=== PATIENT | female | born 1995 | race Caucasian/White ===

== ENCOUNTER 2018-06-15 01:28 | Emergency (ER) | payer SELFPAY ==
--- NOTE | 2018-06-15 01:36 | ER Report ---
History and Physical Time Seen By MD: 01:37 HPI/ROS CHIEF COMPLAINT: abdominal pain HISTORY OF PRESENT ILLNESS: This is a 22 year old female. She is having pain in the right lower abdomen and in the right back/flank area. Started last night. Pa in stays on the right side. Nausea and dry heaves. Urine perhaps a little darker. Normal bowels. No urgency or dysuria. No fevers or chills. Nothing has really made the pain worse or better. No cough or shortness of breath. No chest pain. Allergies: Coded Allergies: No Known Drug Allergies (Unverified , 06/15/18) Home Meds Active Scripts Ketorolac Tromethamine (KETOROLAC TROMETHAMINE) 10 Mg Tab, 10 MG PO Q6H PRN for PAIN, #12 TAB 0 Refills Prov:PEE TURPIN MD 06/15/18 Ondansetron (ONDANSETRON ODT) 4 Mg Tab.rapdis, 4 MG PO Q6H PRN for NAUSEA/VOMITING, #20 TAB 0 Refills Prov:PEE TURPIN MD 06/15/18 Hydrocodone Bit/Acetaminophen (HYDROCODON-ACETAMINOPHEN 5-325) 1 Each Tablet, 1 EACH PO Q4H PRN for PAIN, #12 TAB 0 Refills Prov:PEE TURPIN MD 06/15/18 Tamsulosin Hcl (FLOMAX) 0.4 Mg Cap.er.24h, 0.4 MG PO QDAY, #14 CAP 0 Refills Prov:PEE TURPIN MD 06/15/18 Reported Medications [vickie] No Conflict Check, PO DAILY 06/15/18 Reviewed Nurses Notes: Yes Constitutional Vital Sign - Last 24 Hours 06/15/18 06/15/18 06/15/18 06/15/18 01:28 01:33 01:37 01:58 Temp 97.8 Pulse ??? 57 66 Resp 13 B/P (MAP) 103/90 103/90 (94) Pulse Ox 96 95 O2 Delivery Room Air 06/15/18 06/15/18 06/15/18 06/15/18 02:00 02:42 02:47 03:00 Pulse 67 B/P (MAP) 97/82 (87) 107/78 (88) 96/71 (79) Pulse Ox 98 06/15/18 03:17 Pulse 68 Pulse Ox 91 Intake and Output 06/14/18 06/14/18 06/15/18 14:58 22:58 06:58 Intake Total 1000 ml Balance 1000 ml Physical Exam General Appearance: The patient is alert. She is having acute distress due to pain. Eyes: Pupils are equal, round. No pallor, injection or icterus. ENT: Mucous membranes are moist. Normal oral mucosa. Posterior oropharynx is normal. Neck: Supple and non tender. Respiratory: Lungs are clear to auscultation. Cardiovascular: Regular rate and rhythm. No murmurs, gallops or rubs. Normal capillary refill. Gastrointestinal: Abdomen is soft, tenderness is not reproducible with palpation. Nondistended. Normal active bowel sounds. No costovertebral angle tenderness with percussion. Neurological: Alert and oriented x3. Skin: Warm and dry. Musculoskeletal: No tenderness in palpation of the cervical, thoracic and lumbar spine. DIFFERENTIAL DIAGNOSIS: After history and physical exam, differential diagnosis was considered for abdominal pain including but not limited to appendicitis, cholecystitis, gastritis/gastroenteritis, kidney stones and urinary tract infection. Medical Decision Making Data Points Result Diagram: 06/15/18 0144 06/15/18 0144 Laboratory Hematology Test 06/15/18 01:35 06/15/18 01:44 Urine Color Yellow Urine Clarity Cloudy Urine pH 6.0 pH (4.8-9.5) Urine Specific [place] 1.021 Urine Protein 30 mg/dL (NEGATIVE) Urine Glucose (UA) Negative mg/dL (NEGATIVE) Urine Ketones Negative mg/dL (NEGATIVE) Urine Blood Large (NEGATIVE) Urine Nitrite Negative (NEGATIVE) Urine Bilirubin Negative (NEGATIVE) Urine Urobilinogen 2.0 mg/dL (0.2-1.9) Urine Leukocyte Esterase Small (NEGATIVE) Urine RBC 1838 /HPF (0-2/HPF) Urine WBC 80 /HPF (0-5/HPF) Urine Squamous Epithelial Cells Many /LPF (</=FEW) Urine Bacteria Few /HPF (NONE-FEW) Urine Mucus Few /HPF (NONE-FEW) Red Blood Count 5.02 M/uL (4.17-5.56) Mean Corpuscular Volume 90.2 fL (80.0-96.0) Mean Corpuscular Hemoglobin 31.0 pg (26.0-33.0) Mean Corpuscular Hemoglobin Concent 34.4 g/dL (32.0-36.0) Red Cell Distribution Width 11.7 % (11.5-14.5) Mean Platelet Volume 8.4 fL (7.2-11.1) Neutrophils (%) (Auto) 48.4 % (39.4-72.5) Lymphocytes (%) (Auto) 41.0 % (17.6-49.6) Monocytes (%) (Auto) 8.2 % (4.1-12.4) Eosinophils (%) (Auto) 1.6 % (0.4-6.7) Basophils (%) (Auto) 0.8 % (0.3-1.4) Nucleated RBC Relative Count (auto) 0.0 /100WBC Neutrophils # (Auto) 5.2 K/uL (2.0-7.4) Lymphocytes # (Auto) 4.4 K/uL (1.3-3.6) Monocytes # (Auto) 0.9 K/uL (0.3-1.0) Eosinophils # (Auto) 0.2 K/uL (0.0-0.5) Basophils # (Auto) 0.1 K/uL (0.0-0.1) Nucleated RBC Absolute Count (auto) 0.00 K/uL Sodium Level 138 mmol/L (137-145) Potassium Level 3.7 mmol/L (3.5-5.0) Chloride Level 105 mmol/L (98-107) Carbon Dioxide Level 21 mmol/L (22-31) Blood Urea Nitrogen 10 mg/dl (7-18) Creatinine 0.70 mg/dl (0.52-1.04) Glomerular Filtration Rate Calc > 60.0 Random Glucose 93 mg/dl (75-110) Calcium Level 9.5 mg/dl (8.4-10.2) Total Bilirubin 0.4 mg/dl (0.2-1.3) Aspartate Amino Transf (AST/SGOT) 23 U/L (0-35) Alanine Aminotransferase (ALT/SGPT) 18 U/L (0-56) Alkaline Phosphatase 62 U/L (0-126) Total Protein 8.3 g/dl (6.3-8.2) Albumin 4.5 g/dl (3.5-5.0) Amylase Level 119 U/L (0-110) Lipase 205 U/L (23-300) Human Chorionic Gonadotropin, Qual Negative (NEGATIVE) Chemistry Test 06/15/18 01:35 06/15/18 01:44 Urine Color Yellow Urine Clarity Cloudy Urine pH 6.0 pH (4.8-9.5) Urine Specific [place] 1.021 Urine Protein 30 mg/dL (NEGATIVE) Urine Glucose (UA) Negative mg/dL (NEGATIVE) Urine Ketones Negative mg/dL (NEGATIVE) Urine Blood Large (NEGATIVE) Urine Nitrite Negative (NEGATIVE) Urine Bilirubin Negative (NEGATIVE) Urine Urobilinogen 2.0 mg/dL (0.2-1.9) Urine Leukocyte Esterase Small (NEGATIVE) Urine RBC 1838 /HPF (0-2/HPF) Urine WBC 80 /HPF (0-5/HPF) Urine Squamous Epithelial Cells Many /LPF (</=FEW) Urine Bacteria Few /HPF (NONE-FEW) Urine Mucus Few /HPF (NONE-FEW) White Blood Count 10.8 k/uL (4.5-11.0) Red Blood Count 5.02 M/uL (4.17-5.56) Hemoglobin 15.6 g/dL (12.0-16.0) Hematocrit 45.3 % (34.0-47.0) Mean Corpuscular Volume 90.2 fL (80.0-96.0) Mean Corpuscular Hemoglobin 31.0 pg (26.0-33.0) Mean Corpuscular Hemoglobin Concent 34.4 g/dL (32.0-36.0) Red Cell Distribution Width 11.7 % (11.5-14.5) Platelet Count 354 K/uL (150-450) Mean Platelet Volume 8.4 fL (7.2-11.1) Neutrophils (%) (Auto) 48.4 % (39.4-72.5) Lymphocytes (%) (Auto) 41.0 % (17.6-49.6) Monocytes (%) (Auto) 8.2 % (4.1-12.4) Eosinophils (%) (Auto) 1.6 % (0.4-6.7) Basophils (%) (Auto) 0.8 % (0.3-1.4) Nucleated RBC Relative Count (auto) 0.0 /100WBC Neutrophils # (Auto) 5.2 K/uL (2.0-7.4) Lymphocytes # (Auto) 4.4 K/uL (1.3-3.6) Monocytes # (Auto) 0.9 K/uL (0.3-1.0) Eosinophils # (Auto) 0.2 K/uL (0.0-0.5) Basophils # (Auto) 0.1 K/uL (0.0-0.1) Nucleated RBC Absolute Count (auto) 0.00 K/uL Glomerular Filtration Rate Calc > 60.0 Calcium Level 9.5 mg/dl (8.4-10.2) Total Bilirubin 0.4 mg/dl (0.2-1.3) Aspartate Amino Transf (AST/SGOT) 23 U/L (0-35) Alanine Aminotransferase (ALT/SGPT) 18 U/L (0-56) Alkaline Phosphatase 62 U/L (0-126) Total Protein 8.3 g/dl (6.3-8.2) Albumin 4.5 g/dl (3.5-5.0) Amylase Level 119 U/L (0-110) Lipase 205 U/L (23-300) Human Chorionic Gonadotropin, Qual Negative (NEGATIVE) Urinalysis Test 06/15/18 01:35 Urine Color Yellow Urine Clarity Cloudy Urine pH 6.0 pH (4.8-9.5) Urine Specific [place] 1.021 Urine Protein 30 mg/dL (NEGATIVE) Urine Glucose (UA) Negative mg/dL (NEGATIVE) Urine Ketones Negative mg/dL (NEGATIVE) Urine Blood Large (NEGATIVE) Urine Nitrite Negative (NEGATIVE) Urine Bilirubin Negative (NEGATIVE) Urine Urobilinogen 2.0 mg/dL (0.2-1.9) Urine Leukocyte Esterase Small (NEGATIVE) Urine RBC 1838 /HPF (0-2/HPF) Urine WBC 80 /HPF (0-5/HPF) Urine Squamous Epithelial Cells Many /LPF (</=FEW) Urine Bacteria Few /HPF (NONE-FEW) Urine Mucus Few /HPF (NONE-FEW) EKG/Imaging Imaging Computed tomograpy abdomen and pelvis with IV contrast Indication: Right-sided pain. Flank pain. Comparison: None available. Technique: Transaxial computed tomography images were obtained through the abdomen and pelvis following the injection of nonionic iodinated intravenous contrast. Reformatted coronal and sagittal images were also obtained. One of the following dose optimization techniques was utilized in the performance of this exam: Automated exposure control; adjustment of the mA and/or kV according to the patient's size; or use of an iterative reconstruction technique. Specific details can be referenced in the facility's radiology CT exam operational policy. Contrast: 75 ml of Isovue-370 IV contrast. Findings: Lower lung pozo: Limited views lower lung field are unremarkable. Liver: No focal parenchymal abnormality of the liver. Biliary: Gallbladder appears unremarkable as well as the intra and extra hepatic biliary system. Pancreas: Normal appearance. Spleen: Normal appearance. Adrenal glands: Unremarkable. Kidneys / retroperitoneum: On the right side, there is mild-moderate hydronephrosis identified. This is due to an obstructing proximal ureteral stone seen just beyond the ureteropelvic junction. This stone measures up to 3 mm in size. The ureter distal to the stone is decompressed. No additional right-sided calculi are seen. On the left, no stones or hydronephrosis. Bowel / peritoneum / mesenteries: The appendix is identified within the central pelvis. It appears mildly enlarged measuring 9 mm in thickness. Equivocal wall thickening but no discrete surrounding inflammatory changes at this time. Close clinical follow-up is recommended. Early acute appendicitis cannot be excluded. Scattered lymph nodes are seen in the right ileocolonic mesentery. There are a few fluid-filled bowel loops within the right mid abdomen. Developing ileus in this location is a consideration. No free air. No free pelvic fluid. Lymph node assessment: Scattered nonspecific nodes are seen within the right ileocolonic mesentery. These may be reactive. Pelvic structures: Appear unremarkable. Vessels: No significant atherosclerotic calcifications seen throughout a nonaneurysmal abdominal aorta and branches. Musculoskeletal / Body wall: A mild levocurvature centered in the mid lumbar spine. IMPRESSION: 1. Moderate right-sided hydronephrosis and proximal hydroureter due to an obst ructing proximal ureteral stone which measures 3 mm in size. 2. Prominent appendix in the right central pelvis with equivocal wall thickening but without surrounding inflammatory change. Close clinical follow-up is recommended. Results were discussed with PEE TURPIN at 06/15/2018 3:15 AM. Report Dictated By: Jose Paulson at 06/15/2018 2:55 AM ED Course/Re-evaluation Clinical Indication for ER IV: Hydration, IV Access ED Course Improved with the IV fluids, Zofran, Morphine and Toradol. See CT scan report. Discussed this with the patient, including the increased size of the appendix, but no sign of inflammation, fever, or elevated white count. Discussed signs and symptoms to watch for and also regarding treatment of kidney stones. Decision to Disposition Date: Jun 15, 2018 Decision to Disposition Time: 03:12 Depart Departure Latest Vital Signs Vital Signs Date Time Temp Pulse Resp B/P (MAP) Pulse Ox O2 Delivery O2 Flow Rate FiO2 06/15/18 03:17 68 91 06/15/18 03:00 96/71 (79) 06/15/18 01:33 97.8 13 Room Air Impression: Primary Impression: Kidney stone on right side Condition: Improved Disposition: HOME OR SELF-CARE New Scripts Ketorolac Tromethamine (KETOROLAC TROMETHAMINE) 10 Mg Tab 10 MG PO Q6H PRN for PAIN, #12 TAB 0 Refills Prov: PEE TURPIN MD 06/15/18 Ondansetron (ONDANSETRON ODT) 4 Mg Tab.rapdis 4 MG PO Q6H PRN for NAUSEA/VOMITING, #20 TAB 0 Refills Prov: PEE TURPIN MD 06/15/18 Hydrocodone Bit/Acetaminophen (HYDROCODON-ACETAMINOPHEN 5-325) 1 Each Tablet 1 EACH PO Q4H PRN for PAIN, #12 TAB 0 Refills Prov: PEE TURPIN MD 06/15/18 Tamsulosin Hcl (FLOMAX) 0.4 Mg Cap.er.24h 0.4 MG PO QDAY, #14 CAP 0 Refills Prov: PEE TURPIN MD 06/15/18 Patient Instructions: Kidney Stones (ED) Additional Instructions: You have a 3mm stone in the right ureter. It is causing some back up of fluid to the kidney. This should pass with time. Rest and increase fluid intake. For pain you can use: Toradol 10mg, one every 6 hours as needed for pain. Lortab 5/325, take 1-2 every 4 hours as needed for pain. For Nausea: Zofran 4mg, one every 4-6 hours as needed for nausea. To help the stone to pass and to help decrease swelling and pain in the urinary system after the stone passes, we recommend using Flomax 0.4mg one daily for the next couple of weeks. Please return to the ER should you have fevers and chills, or pain that is worsening and uncontrolled with the pain medicine, or nausea that is uncontrolled with the nausea medicine. PEE TURPIN MD Jun 15, 2018 01:36
[2018-06-15] MEDS ORDERED: yazmin PO (01:45)
[2018-06-15] MEDS ORDERED: NS(*) 0.9% 1000 ML BAG 1,000 ML IV ONE (01:55)
[2018-06-15] MEDS ORDERED: ONDANSETRON 4 MG/2 ML VIAL IVP ONE (01:55)
[2018-06-15] MEDS ORDERED: MORPHINE 4 MG/ML SDV IVP ONE ×2 (01:55→02:50)
[2018-06-15 02:12] LABS: PLATELET COUNT, AUTOMATED 354 K/uL (150-450)
[2018-06-15] MEDS ORDERED: IOPAMIDOL 76% 75 ML INFUS BTL 75 ML ONE (02:23)
[2018-06-15] MEDS ORDERED: KETOROLAC 30 MG/ML VIAL IVP ONE (02:50)
[2018-06-15 03:00] VITALS: BP 96/71
[2018-06-15] MEDS ORDERED: KETOROLAC TROM 10 MG TAB TH PO ONE (03:10)
[2018-06-15] MEDS ORDERED: ONDANSETRON 4 MG ODT TH SL ONE (03:10)
[2018-06-15] MEDS ORDERED: TAMSULOSIN HCL 0.4 MG CAP PO ONE (03:10)
[2018-06-15] MEDS ORDERED: APAP/HYDROCODONE 325/5 TAB PO ONE (03:10)
[2018-06-15] MEDS ORDERED: ACET/HYDROC 5/325MG TH ER ONLY 2 TAB/BOTTLE PO ONE (03:10)
[2018-06-15] MEDS ORDERED: TAMS0.4C25 PO (03:14)
[2018-06-15] MEDS ORDERED: KET10 PO (03:14)
[2018-06-15] MEDS ORDERED: ONDA4TAB9 PO (03:14)
[2018-06-15] MEDS ORDERED: LOR5/325 PO (03:14)
--- NOTE | 2018-06-15 03:21 | RADIOLOGY IMAGING REPORT ---
FACILITY: [facility] PATIENT NAME: Temitope Alexander : 1995 MR: [id number] V: [id number] EXAM DATE: ORDERING PHYSICIAN: PEE TURPIN TECHNOLOGIST: [place] [facility] [place]: Temitope Alexander : 1995 Visit/Account:[id number] Date of Sevice: 06/15/2018 Computed tomograpy abdomen and pelvis with IV contrast Indication: Right-sided pain. Flank pain. Comparison: None available. Technique: Transaxial computed tomography images were obtained through the abdomen and pelvis follo wing the injection of nonionic iodinated intravenous contrast. Reformatted coronal and sagittal image s were also obtained. One of the following dose optimization techniques was utilized in the performance of this exam: Autom ated exposure control; adjustment of the mA and/or kV according to the patient's size; or use of an i terative reconstruction technique. Specific details can be referenced in the facility's radiology C T exam operational policy. Contrast: 75 ml of Isovue-370 IV contrast. Findings: Lower lung pozo: Limited views lower lung field are unremarkable. Liver: No focal parenchymal abnormality of the liver. Biliary: Gallbladder appears unremarkable as well as the intra and extra hepatic biliary system. Pancreas: Normal appearance. Spleen: Normal appearance. Adrenal glands: Unremarkable. Kidneys / retroperitoneum: On the right side, there is mild-moderate hydronephrosis identified. This is due to an obstructing proximal ureteral stone seen just beyond the ureteropelvic junction. This st one measures up to 3 mm in size. The ureter distal to the stone is decompressed. No additional right- sided calculi are seen. On the left, no stones or hydronephrosis. Bowel / peritoneum / mesenteries: The appendix is identified within the central pelvis. It appears mi ldly enlarged measuring 9 mm in thickness. Equivocal wall thickening but no discrete surrounding infl ammatory changes at this time. Close clinical follow-up is recommended. Early acute appendicitis jeremias ot be excluded. Scattered lymph nodes are seen in the right ileocolonic mesentery. There are a few fl uid-filled bowel loops within the right mid abdomen. Developing ileus in this location is a considera tion. No free air. No free pelvic fluid. Lymph node assessment: Scattered nonspecific nodes are seen within the right ileocolonic mesentery. T hese may be reactive. Pelvic structures: Appear unremarkable. Vessels: No significant atherosclerotic calcifications seen throughout a nonaneurysmal abdominal aort a and branches. Musculoskeletal / Body wall: A mild levocurvature centered in the mid lumbar spine. IMPRESSION: 1. Moderate right-sided hydronephrosis and proximal hydroureter due to an obstructing proximal ureter al stone which measures 3 mm in size. 2. Prominent appendix in the right central pelvis with equivocal wall thickening but without surround ing inflammatory change. Close clinical follow-up is recommended. Results were discussed with PEE TURPIN at 06/15/2018 3:15 AM. Report Dictated By: Jose Paulson at 06/15/2018 2:55 AM Report E-Signed By: Jose Paulson at 06/15/2018 3:16 AM WSN:[id number]
== END 2018-06-15 03:32 | disposition home or self-care (01) ==
LOC: ER 02:12
DX: N13.2 Hydronephrosis with renal and ureteral calculous obstruction (principal); N13.4 Hydroureter
CPT/HCPCS: 74177; 81001; 82150; 83690; 84703; 85025; 96361; 96374; 96375; 96376; 99284; J1885; J2270; J2405; J7030; Q9967; S0119; 82040; 82247; 82310; 82374; 82435; 82565; 82947; 84075; 84132; 84155; 84295; 84450; 84460; 84520

== ENCOUNTER 2018-06-19 04:02 | Emergency (ER) | payer OTHER ==
[~2018-06-19 04:02] MED LIST: KET10 PO; LOR5/325 PO; ONDA4TAB9 PO; TAMS0.4C25 PO; yazmin PO
--- NOTE | 2018-06-19 04:12 | ER Report ---
History and Physical Time Seen By MD: 04:07 HPI/ROS CHIEF COMPLAINT: Right flank pain HISTORY OF PRESENT ILLNESS: 22-year-old female with a known history of kidney stone diagnosed on CAT scan 3 days ago. It's a 3 mm stone in the proximal urete r. At that time. Patient was discharged home with medication. Patient was doing well the last 2 days. Tonight. She's been having increased pain. She's got 8/10 right flank pain. She took Zofran and ketorolac orally at home prior to coming in. REVIEW OF SYSTEMS: Respiratory: No cough, no dyspnea. Cardiovascular: No chest pain, no palpitations. Gastrointestinal: As above Musculoskeletal: As above Allergies: Coded Allergies: No Known Drug Allergies (Unverified , 06/19/18) Home Meds Active Scripts Hydrocodone Bit/Acetaminophen (HYDROCODON-ACETAMINOPHEN 5-325) 1 Each Tablet, 1- 2 EACH PO Q4-6H PRN for PAIN, #15 TAKE ONE TABLET BY MOUTH EVERY 4-6 HOURS NEEDED FOR PAIN Prov:ELVIS NEWTON DO 06/19/18 Ketorolac Tromethamine (KETOROLAC TROMETHAMINE) 10 Mg Tab, 10 MG PO Q6H PRN for PAIN, #12 TAB 0 Refills Prov:PEE TURPIN MD 06/15/18 Ondansetron (ONDANSETRON ODT) 4 Mg Tab.rapdis, 4 MG PO Q6H PRN for NAUSEA/VOMITING, #20 TAB 0 Refills Prov:PEE TURPIN MD 06/15/18 Hydrocodone Bit/Acetaminophen (HYDROCODON-ACETAMINOPHEN 5-325) 1 Each Tablet, 1 EACH PO Q4H PRN for PAIN, #12 TAB 0 Refills Prov:PEE TURPIN MD 06/15/18 Tamsulosin Hcl (FLOMAX) 0.4 Mg Cap.er.24h, 0.4 MG PO QDAY, #14 CAP 0 Refills Prov:PEE TURPIN MD 06/15/18 Reported Medications [vickie] No Conflict Check, PO DAILY 06/15/18 Reviewed Nurses Notes: Yes Old Medical Records Reviewed: Yes Hx Substance Use Disorder: No Constitutional Vital Sign - Last 24 Hours 06/19/18 06/19/18 06/19/18 06/19/18 04:02 04:04 04:09 04:17 Temp 98.1 Pulse ??? 72 79 Resp 16 B/P (MAP) 127/91 127/91 (103) Pulse Ox 95 94 O2 Delivery Room Air 06/19/18 06/19/18 06/19/18 06/19/18 04:27 04:30 04:32 04:47 Pulse 75 83 B/P (MAP) 122/86 (98) 115/84 (94) Pulse Ox 89 95 06/19/18 06/19/18 06/19/18 06/19/18 05:00 05:02 05:07 05:22 Pulse 68 64 67 B/P (MAP) 108/75 (86) Pulse Ox 89 91 91 06/19/18 06/19/18 05:30 05:32 Pulse 85 Resp 16 B/P (MAP) 106/77 (87) 127/66 (86) Pulse Ox 96 O2 Delivery Room Air Physical Exam General Appearance: The patient is alert, has no immediate need for airway protection and no current signs of toxicity. Vital signs stable, afebrile, moderate distress HEENT: Pupils equal and round no injection. TMs normal, oropharynx without redness or exudate Respiratory: Chest is non tender, lungs are clear to auscultation. Cardiac: regular rate and rhythm Gastrointestinal: Abdomen is soft and non tender, no masses, bowel sounds normal. Mild right CVA tenderness Musculoskeletal: Neck: Neck is supple and non tender. Extremities have full range of motion and are non tender. Skin: No rashes or lesions. DIFFERENTIAL DIAGNOSIS: After history and physical exam differential diagnosis was considered for flank pain including but not limited to musculoskeletal causes, kidney stone, pyelonephritis, shingles, and intra-abdominal causes such as diverticulitis and appendicitis. Medical Decision Making Data Points Result Diagram: 06/19/18 0416 06/19/18 0416 Laboratory Hematology Test 06/19/18 04:08 06/19/18 04:16 Urine Color Yellow Urine Clarity Clear Urine pH 5.0 pH (4.8-9.5) Urine Specific [place] 1.015 Urine Protein Negative mg/dL (NEGATIVE) Urine Glucose (UA) Negative mg/dL (NEGATIVE) Urine Ketones Negative mg/dL (NEGATIVE) Urine Blood Small (NEGATIVE) Urine Nitrite Negative (NEGATIVE) Urine Bilirubin Negative (NEGATIVE) Urine Urobilinogen Negative mg/dL (0.2-1.9) Urine Leukocyte Esterase Negative (NEGATIVE) Urine RBC 6 /HPF (0-2/HPF) Urine WBC 2 /HPF (0-5/HPF) Urine Squamous Epithelial Cells Many /LPF (</=FEW) Urine Bacteria Few /HPF (NONE-FEW) Urine Mucus Few /HPF (NONE-FEW) Red Blood Count 4.71 M/uL (4.17-5.56) Mean Corpuscular Volume 88.5 fL (80.0-96.0) Mean Corpuscular Hemoglobin 30.8 pg (26.0-33.0) Mean Corpuscular Hemoglobin Concent 34.8 g/dL (32.0-36.0) Red Cell Distribution Width 11.4 % (11.5-14.5) Mean Platelet Volume 7.8 fL (7.2-11.1) Neutrophils (%) (Auto) 60.6 % (39.4-72.5) Lymphocytes (%) (Auto) 27.6 % (17.6-49.6) Monocytes (%) (Auto) 9.6 % (4.1-12.4) Eosinophils (%) (Auto) 1.6 % (0.4-6.7) Basophils (%) (Auto) 0.6 % (0.3-1.4) Nucleated RBC Relative Count (auto) 0.0 /100WBC Neutrophils # (Auto) 6.7 K/uL (2.0-7.4) Lymphocytes # (Auto) 3.1 K/uL (1.3-3.6) Monocytes # (Auto) 1.1 K/uL (0.3-1.0) Eosinophils # (Auto) 0.2 K/uL (0.0-0.5) Basophils # (Auto) 0.1 K/uL (0.0-0.1) Nucleated RBC Absolute Count (auto) 0.00 K/uL Sodium Level 139 mmol/L (137-145) Potassium Level 3.8 mmol/L (3.5-5.0) Chloride Level 107 mmol/L (98-107) Carbon Dioxide Level 22 mmol/L (22-31) Blood Urea Nitrogen 11 mg/dl (7-18) Creatinine 1.10 mg/dl (0.52-1.04) Glomerular Filtration Rate Calc > 60.0 Random Glucose 98 mg/dl (75-110) Calcium Level 9.4 mg/dl (8.4-10.2) Total Bilirubin 0.2 mg/dl (0.2-1.3) Aspartate Amino Transf (AST/SGOT) 18 U/L (0-35) Alanine Aminotransferase (ALT/SGPT) 27 U/L (0-56) Alkaline Phosphatase 58 U/L (0-126) Total Protein 6.8 g/dl (6.3-8.2) Albumin 3.8 g/dl (3.5-5.0) Amylase Level 78 U/L (0-110) Lipase 157 U/L (23-300) Chemistry Test 06/19/18 04:08 06/19/18 04:16 Urine Color Yellow Urine Clarity Clear Urine pH 5.0 pH (4.8-9.5) Urine Specific [place] 1.015 Urine Protein Negative mg/dL (NEGATIVE) Urine Glucose (UA) Negative mg/dL (NEGATIVE) Urine Ketones Negative mg/dL (NEGATIVE) Urine Blood Small (NEGATIVE) Urine Nitrite Negative (NEGATIVE) Urine Bilirubin Negative (NEGATIVE) Urine Urobilinogen Negative mg/dL (0.2-1.9) Urine Leukocyte Esterase Negative (NEGATIVE) Urine RBC 6 /HPF (0-2/HPF) Urine WBC 2 /HPF (0-5/HPF) Urine Squamous Epithelial Cells Many /LPF (</=FEW) Urine Bacteria Few /HPF (NONE-FEW) Urine Mucus Few /HPF (NONE-FEW) White Blood Count 11.0 k/uL (4.5-11.0) Red Blood Count 4.71 M/uL (4.17-5.56) Hemoglobin 14.5 g/dL (12.0-16.0) Hematocrit 41.7 % (34.0-47.0) Mean Corpuscular Volume 88.5 fL (80.0-96.0) Mean Corpuscular Hemoglobin 30.8 pg (26.0-33.0) Mean Corpuscular Hemoglobin Concent 34.8 g/dL (32.0-36.0) Red Cell Distribution Width 11.4 % (11.5-14.5) Platelet Count 293 K/uL (150-450) Mean Platelet Volume 7.8 fL (7.2-11.1) Neutrophils (%) (Auto) 60.6 % (39.4-72.5) Lymphocytes (%) (Auto) 27.6 % (17.6-49.6) Monocytes (%) (Auto) 9.6 % (4.1-12.4) Eosinophils (%) (Auto) 1.6 % (0.4-6.7) Basophils (%) (Auto) 0.6 % (0.3-1.4) Nucleated RBC Relative Count (auto) 0.0 /100WBC Neutrophils # (Auto) 6.7 K/uL (2.0-7.4) Lymphocytes # (Auto) 3.1 K/uL (1.3-3.6) Monocytes # (Auto) 1.1 K/uL (0.3-1.0) Eosinophils # (Auto) 0.2 K/uL (0.0-0.5) Basophils # (Auto) 0.1 K/uL (0.0-0.1) Nucleated RBC Absolute Count (auto) 0.00 K/uL Glomerular Filtration Rate Calc > 60.0 Calcium Level 9.4 mg/dl (8.4-10.2) Total Bilirubin 0.2 mg/dl (0.2-1.3) Aspartate Amino Transf (AST/SGOT) 18 U/L (0-35) Alanine Aminotransferase (ALT/SGPT) 27 U/L (0-56) Alkaline Phosphatase 58 U/L (0-126) Total Protein 6.8 g/dl (6.3-8.2) Albumin 3.8 g/dl (3.5-5.0) Amylase Level 78 U/L (0-110) Lipase 157 U/L (23-300) Urinalysis Test 06/19/18 04:08 Urine Color Yellow Urine Clarity Clear Urine pH 5.0 pH (4.8-9.5) Urine Specific [place] 1.015 Urine Protein Negative mg/dL (NEGATIVE) Urine Glucose (UA) Negative mg/dL (NEGATIVE) Urine Ketones Negative mg/dL (NEGATIVE) Urine Blood Small (NEGATIVE) Urine Nitrite Negative (NEGATIVE) Urine Bilirubin Negative (NEGATIVE) Urine Urobilinogen Negative mg/dL (0.2-1.9) Urine Leukocyte Esterase Negative (NEGATIVE) Urine RBC 6 /HPF (0-2/HPF) Urine WBC 2 /HPF (0-5/HPF) Urine Squamous Epithelial Cells Many /LPF (</=FEW) Urine Bacteria Few /HPF (NONE-FEW) Urine Mucus Few /HPF (NONE-FEW) EKG/Imaging Imaging Previous CT scan from 06/15/18 reviewed Results: Computed tomograpy abdomen and pelvis with IV contrast Indication: Right-sided pain. Flank pain. Comparison: None available. Technique: Transaxial computed tomography images were obtained through the abdomen and pelvis following the injection of nonionic iodinated intravenous con trast. Reformatted coronal and sagittal images were also obtained. One of the following dose optimization techniques was utilized in the performance of this exam: Automated exposure control; adjustment of the mA and/or kV according to the patient's size; or use of an iterative reconstruction technique. Specific details can be referenced in the facility's radiology CT exam operational policy. Contrast: 75 ml of Isovue-370 IV contrast. Findings: Lower lung pozo: Limited views lower lung field are unremarkable. Liver: No focal parenchymal abnormality of the liver. Biliary: Gallbladder appears unremarkable as well as the intra and extra hepatic biliary system. Pancreas: Normal appearance. Spleen: Normal appearance. Adrenal glands: Unremarkable. Kidneys / retroperitoneum: On the right side, there is mild-moderate hydronephrosis identified. This is due to an obstructing proximal ureteral stone seen just beyond the ureteropelvic junction. This stone measures up to 3 mm in size. The ureter distal to the stone is decompressed. No additional right-sided calculi are seen. On the left, no stones or hydronephrosis. Bowel / peritoneum / mesenteries: The appendix is identified within the central pelvis. It appears mildly enlarged measuring 9 mm in thickness. Equivocal wall thickening but no discrete surrounding inflammatory changes at this time. Close clinical follow-up is recommended. Early acute appendicitis cannot be excluded. Scattered lymph nodes are seen in the right ileocolonic mesentery. There are a few fluid-filled bowel loops within the right mid abdomen. Developing ileus in this location is a consideration. No free air. No free pelvic fluid. Lymph node assessment: Scattered nonspecific nodes are seen within the right ileocolonic mesentery. These may be reactive. Pelvic structures: Appear unremarkable. Vessels: No significant atherosclerotic calcifications seen throughout a nonaneurysmal abdominal aorta and branches. Musculoskeletal / Body wall: A mild levocurvature centered in the mid lumbar spine. IMPRESSION: 1. Moderate right-sided hydronephrosis and proximal hydroureter due to an obstructing proximal ureteral stone which measures 3 mm in size. 2. Prominent appendix in the right central pelvis with equivocal wall thickening but without surrounding inflammatory change. Close clinical follow-up is recommended. The study was read by the radiologist. I viewed the images myself on the PACS system. ED Course/Re-evaluation Clinical Indication for ER IV: Hydration, IV Access ED Course Patient was admitted to an examination room. H&P was done. The differential diagnosis was considered. On conical examination. Patient was severe right flank pain. She has a known history of kidney stone. She was seen here in the ER 3 days ago. The visit and CAT scan report was reviewed. Patient was noted to have a 3 mm proximal stone in the right ureter. Patient lasted Zofran and Toradol several hours prior to arrival. Patient denies fever. IV is establishe d. Patient's medicated with Dilaudid IV and repetitive doses of 0.5 until her pain is controlled. She's hydrated. Her diagnostic studies are unremarkable. She has no fever. I did discuss the option of a repeat CT scan, although will not likely change the treatment plan. I suspect the stone was moderately high up in the ureter is now at the UVJ. It is likely causing significant back pressure. Patient's advised to continue home therapy. She's given a refill of hydrocodone for pain relief. She is advised to continue on all the medications and contact urology on Thursday if she is not improved. She is cautioned return to the ER over the weekend for any worsening. Decision to Disposition Date: Jun 19, 2018 Decision to Disposition Time: 05:21 Depart Departure Latest Vital Signs Vital Signs Date Time Temp Pulse Resp B/P (MAP) Pulse Ox O2 Delivery O2 Flow Rate FiO2 06/19/18 05:32 85 16 127/66 (86) 96 Room Air 06/19/18 04:04 98.1 Impression: Primary Impression: Kidney stone on right side Condition: Improved Disposition: HOME OR SELF-CARE Referrals: EMILIANA HARDY MD,DEEPTI Hunt MD New Scripts Hydrocodone Bit/Acetaminophen (HYDROCODON-ACETAMINOPHEN 5-325) 1 Each Tablet 1-2 EACH PO Q4-6H PRN for PAIN, #15 TAKE ONE TABLET BY MOUTH EVERY 4-6 HOURS NEEDED FOR PAIN Prov: ELVIS NEWTON DO 06/19/18 Patient Instructions: Kidney Stones (ED) Additional Instructions: Follow-up with urology on Thursday morning Return to the ER for any worsening ELVIS NEWTON DO Jun 19, 2018 04:12
[2018-06-19] MEDS ORDERED: NS(*) 0.9% 1000 ML BAG 1,000 ML IV ONE (04:16)
[2018-06-19] MEDS ORDERED: KETOROLAC 30 MG/ML VIAL IVP ONE (04:20)
[2018-06-19] MEDS ORDERED: HYDROMORPHONE HCL 1 MG/ML SYRINGE IVP ONE ×2 (04:20→04:45)
[2018-06-19] MEDS ORDERED: ONDANSETRON 4 MG/2 ML VIAL IVP ONE (04:20)
[2018-06-19 04:27] LABS: PLATELET COUNT, AUTOMATED 293 K/uL (150-450)
[2018-06-19] MEDS ORDERED: LOR5/325 PO (05:22)
[2018-06-19 05:32] VITALS: BP 127/66
== END 2018-06-19 05:37 | disposition home or self-care (01) ==
LOC: ER 04:40
DX: N13.2 Hydronephrosis with renal and ureteral calculous obstruction (principal)
CPT/HCPCS: 81001; 82150; 83690; 85025; 96374; 96375; 99284; J1170; J2405; J7030; 82040; 82247; 82310; 82374; 82435; 82565; 82947; 84075; 84132; 84155; 84295; 84450; 84460; 84520

== ENCOUNTER → 2018-07-23 | Outpatient (CLI) | payer OTHER ==
--- NOTE | 2018-07-23 10:25 | RADIOLOGY IMAGING REPORT ---
FACILITY: [facility] [place] PATIENT NAME: Temitope Alexander : 1995 MR: [id number] V: [id number] EXAM DATE: ORDERING PHYSICIAN: EMILIANA HARDY TECHNOLOGIST: Location: [facility] - [place] Patient: Temitope Alexander : 1995 Visit/Account:[id number] Date of Sevice: 07/23/2018 CT ABDOMEN PELVIS W/O CON HISTORY: History of right renal stones TECHNIQUE: Axial images acquired through the abdomen/pelvis. Coronal and sagittal reformatting also performed. No IV contrast administered.Dose Lowering Technique One of the following dose optimization techniques was utilized in the performance of this exam: Autom ated exposure control; adjustment of the mA and/or kV according to the patient's size; or use of an i terative reconstruction technique. Specific details can be referenced in the facility's radiology C T exam operational policy. COMPARISON: June 15, 2018 FINDINGS: Visualized lung bases: Negative. Hepatobiliary: The liver was incompletely imaged on this study as examination was tailored towards t he urinary tract. Of the visualized portion the liver no abnormalities seen Spleen: Negative. Adrenals: Negative. Pancreas: Negative. Kidneys ureters and bladder: Negative. Genitalia: Negative. GI: There is a moderate amount of fecal material seen throughout the colon which can be seen with co nstipation Vessels/spaces/nodes: There are multiple mesenteric lymph nodes right-sided the abdomen that appear relatively unchanged Bones/soft tissues: There is a gentle levoconvex scoliosis of lumbar spine Additional findings: None pertinent. IMPRESSION: No demonstration of nephrolithiasis, hydronephrosis or hydroureter There is a moderate amount of fecal material throughout colon which can be seen with constipation Additional chronic findings as described Report Dictated By: Sarah Posadas MD at 07/23/2018 10:13 AM Report E-Signed By: Sarah Posadas MD at 07/23/2018 10:22 AM WSN:[email or web address]
== END ==
LOC: CT 04:45
PROVIDERS: ATTEND Urology
DX: N20.1 Calculus of ureter (principal)
CPT/HCPCS: 74176